=== PATIENT | male | born 1995 | race Caucasian/White ===

== ENCOUNTER 2024-03-14 05:02 | Emergency (ER) | payer OTHER, SELFPAY ==
[2024-03-14 05:02] VITALS: BMI 23.8
[2024-03-14 05:12] VITALS: BP 133/79
[2024-03-14 05:27] VITALS: BP 143/87
[2024-03-14 06:00] VITALS: BP 123/80
[2024-03-14] MEDS: TORADOL 30 MG IV (06:37)
[2024-03-14] MEDS: ZOFRAN 4 MG IV (06:37)
[2024-03-14 06:38] LABS: % Basophils 0.2 % (0-2); % Eosinophils 0.5 % (0-6); % Immature Granulocytes 0.2 % (0-0.5); % Lymphocytes 2.4 % (20.5-51.1); % Monocytes 6.5 % (1.7-9.3); % Neutrophils 90.2 % (42.2-75.2); Absolute Eosinophils 0.1 10^3/uL (0-0.7); Absolute Lymphocytes 0.3 10^3/uL (1.2-3.4); Absolute Monocytes 0.8 10^3/uL (0.1-0.6); Absolute Neutrophils 11.2 10^3/uL (1.4-6.5); Hematocrit 50.9 % (39.0-52.0); Hemoglobin 17.8 g/dL (13.0-18.0); Mean Corpuscular Hgb 31.5 pg (27.0-31.0); Mean Corpuscular Volume 90.1 fL (80.0-94.0); Mean Platelet Volume 8.7 fL (7.4-10.4); Nucleated Red Blood Cells % 0 % (-); Platelet Count 310 10^3/uL (130-400); Red Blood Cell Count 5.65 10^6/uL (4.70-6.10); Red Cell Dist. Width 12.2 % (11.5-14.5); White Blood Cell Count 12.4 10^3/uL (4.8-10.8)
[2024-03-14] MEDS: NSS 1000 IV (06:38)
[2024-03-14 06:55] LABS: ALT (SGPT) 29 U/L (0-50); AST (SGOT) 32 U/L (17-59); Albumin 5.7 g/dl (3.5-5.0); Alkaline Phosphatase 83 U/L (38-126); Blood Urea Nitrogen 17 mg/dl (9-20); Calcium 10.1 mg/dl (8.4-10.2); Carbon Dioxide 25 mmol/L (22-30); Chloride 105 mmol/L (98-107); Estimated Creatinine Clearance 99 ml/min; Glucose 125 mg/dl (70-99); Lipase 65 U/L (23-300); Potassium 4.3 mmol/L (3.5-5.1); Sodium 144 mmol/L (135-145); Total Bilirubin 1.6 mg/dl (0.2-1.3); Total Protein 9.4 g/dl (6.3-8.2); eGFR > 60.00
--- NOTE | 2024-03-14 06:59 | ED.GENMED ---
History of Present Illness
General
Chief Complaint: Abdominal Symptoms
Source: patient and family
Exam Limitations: none
Time Seen by Provider: 03/14/24 06:33
History of Present Illness
History of Present Illness:
See MDM
Past History
Past History
ED Past Medical History: Asthma, Psychiatric and Other (Anaphylaxis)
ED Past Surgical History: None
Social History
Tobacco: Former smoker
Alcohol: None
Drug: None
Personal: Single
Living: with family
Employment: Student
Family History
Family History: Other (Noncontributory)
Phy Exam
Physical Exam
Physical Exam:
See MDM
Course
Orders/Labs/Results
Orders:
Orders
03/14/24 06:29
Complete Blood Count/With Diff Urgent
Comprehensive Metabolic Panel Urgent
Lipase Urgent
03/14/24 06:33
CT Abd/pelvis W Iv Cont Urgent
Comment:
Reason For Exam: RLQ pain, vomiting
0.9% Sodium Chloride 1000 ml [Nss] 1,000 ml IV BOLUS
Ketorolac [Toradol] 30 mg IV NOW STA
Ondansetron Injectable [Zofran] 4 mg IV NOW STA
03/14/24 06:58
Morphine Sulfate 4 mg IV NOW STA
03/14/24 07:46
Morphine Sulfate 4 mg IV NOW STA
03/14/24 08:26
C DIFF [C difficile Antigen & Toxins] Urgent
NIA Source: Feces/Stool
Specimen Description:
Stool Culture Urgent
NIA Source: Feces/Stool
Specimen Description:
03/14/24 08:32
Amoxicillin 875 mg/Clav 125 mg [Augmentin 875 mg/125 mg] 1 tablet PO NOW STA
Abnormal Lab Results
03/14/24
06:29
WBC 12.4 H 10^3/uL
(4.8-10.8)
MCH 31.5 H pg
(27.0-31.0)
Absolute Neuts (auto) 11.2 H 10^3/uL
(1.4-6.5)
Absolute Lymphs (auto) 0.3 L 10^3/uL
(1.2-3.4)
Absolute Monos (auto) 0.8 H 10^3/uL
(0.1-0.6)
Neutrophils % 90.2 H %
(42.2-75.2)
Lymphocytes % 2.4 L %
(20.5-51.1)
Glucose 125 H mg/dl
(70-99)
Total Bilirubin 1.6 H mg/dl
(0.2-1.3)
Total Protein 9.4 H g/dl
(6.3-8.2)
Albumin 5.7 H g/dl
(3.5-5.0)
03/14/24 06:29
03/14/24 06:29
Vital Signs
Initial and Last Documented VS:
Initial Vital Signs
Pulse Resp BP Pulse Ox
99 16 133/79 99
03/14/24 05:12 24 05:12 03/14/24 05:12 03/14/24 05:12
Last Documented Vital Signs
Pulse Resp BP Pulse Ox
99 16 123/80 97
03/14/24 05:12 03/14/24 05:12 03/14/24 06:00 03/14/24 06:30
MDM/Problems Addressed
Differential Diagnosis Includes:
HPI and MDM Narrative:
28-year-old male presenting with father for evaluation of abdominal pain soon after eating. He developed nausea and vomiting. Initially, the pain was generalized. Pain is now radiating to right upper quadrant. On exam, he has mild generalized
tenderness throughout. He is somewhat uncomfortable. Patient started on IV fluids and given Toradol and Zofran. He is no longer dry heaving but the pain is persistent. Will give dose of morphine and obtain CT
Physical exam
General: Mildly uncomfortable
HEENT: protecting airway
Neck: appears supple
CV: No evidence of cyanosis
Resp: No accessory muscle use
Abd: Non-distended. Generalized abdominal tenderness specifically in right lower quadrant and right upper
Extremities: No deformities
Neuro: alert
Psych: Normal affect
Skin: Intact
Problems Addressed including Acute and Chronic Conditions affecting care:
1. Abdominal pain, nausea and vomiting
Acuity: acute
Prognosis: stable
Details: Will obtain CT rule out any evidence of gallbladder pathology or appendicitis. Patient given Toradol morphine and Zofran
Updates
CT is consistent with focal colitis in the hepatic flexure and transverse colon. This correlates with his pain. I discussed infectious versus inflammatory disease. Will start Augmentin. Father states there is family history of inflammatory bowel
disease. Discussed follow-up with GI
Differential Diagnosis (but not limited to): Acute appendicitis, acute calculus cholecystitis, viral gastroenteritis, colitis
Testing considered: Right upper quadrant
Drug therapy (if applicable): OTC meds, please see d/c instruction regarding Rx drugs
Amount and/or Complexity of Data Reviewed
Clinical info obtained from: Patient. Father states that his mother had her gallbladder removed at similar age
External data reviewed: N/A
Labs I independently reviewed (but not limited to): Mild leukocytosis
Radiology: The CT scan was personally and independently reviewed. In addition, official CT report reviewed.
Pulse Ox: not hypoxic
EKG independently reviewed: N/A
Economic Development Specialist: N/A
Critical Care: N/A
Risk of Complication:
Social Determinants of health: Good social support
Discussed with other providers: N/A
Escalation of Care includes Admit/Obs: After being observed in the Emergency Department, pt stable for discharge.
Occasional wrong word or 'sound a like' substitutions may have occurred due to the inherent limitations of voice recognition software. Read the chart carefully and recognize, using context, where substitutions have occurred.
*Critical Care Note
Total Time (30-74mins, 75-104mins- exclusive of procedures): Not Applicable
ED Attending Note
-
Portions of this chart may have been created with voice recognition software.� Occasional wrong word or��sound alike� substitutions may have occurred due to the inherent limitations of voice recognition software.
Discharge Plan
Departure
Patient Disposition: Home (Routine Discharge)
Date of Disposition: 03/14/24
Time of Disposition: 08:34
Patient with high blood pressure during this ER visit?: No
Discharge Problem:
Colitis
Instructions: Colitis (DC)
Prescriptions:
New
amoxicillin-pot clavulanate 875-125 mg tablet
1 tab PO BID Qty: 14 0RF
oxycodone 5 mg tablet
5 mg PO Q8H PRN (Reason: Pain) Qty: 7 0RF
Referrals:
ALEKSEY GAO DO [Family Provider] -
Nena Esteban MD [Active] -
Activity Restrictions/Additional Instructions:
Please return for any worsening symptoms.
You may return at any time if you have further concerns.
Please follow up with your doctor at the first available appointment, preferably this week. As we discussed, the CT scan was consistent with colitis.
This could be an infection or possibly underlying inflammatory bowel disease such as Crohn's disease or Ulceratice Colitis. Please make an appointment to see the concrete plant laborer.
Thank you for choosing [facility].
Interventions
Interventions:
*Risk Screen - Suicide Last Done: 03/14/24 08:10
*General Assessment Last Done: 03/14/24 05:30
*Neglect/Abuse Screening Last Done: 03/14/24 08:10
*ED COVID-19 Vaccine History Last Done: 03/14/24 05:30
SS-Dyoneo-Iiyspmnggo Assessment Last Done: 03/14/24 05:32
Discharge Date and Time
Print Language: [facility]
[2024-03-14] MEDS: MORPHINE SULFATE 4 MG IV (07:08)
[2024-03-14 08:09] VITALS: BP 129/76
[2024-03-14] MEDS: AUGMENTIN 875 MG/125 MG 1 TABLET PO (08:50)
== END 2024-03-14 09:10 | disposition home or self-care (01) ==
LOC: EMR 05:02
PROVIDERS: EMERGENCY PHYSICIAN Student in an Organized Health Care Education/Training Program; FAMILY PHYSICIAN Family Medicine Sports Medicine
DX: K52.9 Noninfective gastroenteritis and colitis, unspecified (principal); J45.909 Unspecified asthma, uncomplicated; Z87.891 Personal history of nicotine dependence
CPT/HCPCS: 99284; 96374; 96375; 96361; 74177; 80053; 83690; 85025; 87045; 87046; 87324; 87427; 87449; Q9967